=== PATIENT | male | born 1950 | race Caucasian/White ===

== ENCOUNTER 2018-05-04 18:25 | Emergency (ER) | payer MEDICARE ==
[~2018-05-04] VITALS: Ht 182.9 cm; Wt 89.5 kg
[2018-05-04 18:26] VITALS: Ht 182.9 cm; Wt 89.5 kg
[2018-05-04] MEDS ORDERED: OMEPRAZOLE20 M1 PO (18:29)
[2018-05-04] MEDS ORDERED: PRINIVIL20 MG PO (18:29)
[2018-05-04] MEDS ORDERED: ZOCOR20 MG PO (18:30)
[2018-05-04] MEDS ORDERED: VOLTAREN75 MG PO (19:34)
[2018-05-04] MEDS ORDERED: MEDROL DOSE PACK4 MG PO (19:34)
[2018-05-04 20:33] VITALS: BP 160/94
== END 2018-05-04 20:33 | disposition home or self-care (01) ==
LOC: D.ER 18:25
DX: S83.92XA Sprain of unspecified site of left knee, initial encounter (principal); X50.1XXA Overexertion from prolonged static or awkward postures, initial encounter; Y93.89 Activity, other specified; Y92.019 Unspecified place in single-family (private) house as the place of occurrence of the external cause; I10 Essential (primary) hypertension

== ENCOUNTER 2018-05-21 09:15 | Emergency (ER) | payer MEDICARE ==
[~2018-05-21] VITALS: Ht 182.9 cm; Wt 90.0 kg
[~2018-05-21 09:15] MED LIST: MEDROL DOSE PACK4 MG PO; OMEPRAZOLE20 M1 PO; PRINIVIL20 MG PO; VOLTAREN75 MG PO; ZOCOR20 MG PO
[2018-05-21 09:21] VITALS: BP 153/82; Ht 182.9 cm; Wt 90.0 kg
[2018-05-21] MEDS ORDERED: VOLTAREN75 MG PO (11:50)
== END 2018-05-21 12:15 | disposition home or self-care (01) ==
LOC: D.ER 09:15
DX: S83.91XA Sprain of unspecified site of right knee, initial encounter (principal); X58.XXXA Exposure to other specified factors, initial encounter; Y93.89 Activity, other specified; Y92.89 Other specified places as the place of occurrence of the external cause